=== PATIENT | female | born 1965 | race Caucasian/White ===

== ENCOUNTER 2016-08-26 06:53 | Day surgery (SDC) | payer BC ==
[~2016-08-26 06:53] MED LIST: Sodium Chloride 0.9% 10 ML Syringe FLUSH PRN; Sodium Chloride 0.9% 2.5 ML Syringe FLUSH PRN
[2016-08-26] MEDS: Lactated Ringers 1,000 ML IV SCH ×3 (07:12→18:59)
[2016-08-26] MEDS ORDERED: fentaNYL 250 MCG/5 ML SDV ONE (07:22)
[2016-08-26] MEDS ORDERED: Lidocaine 2% 5 ML SDV ONE (07:22)
[2016-08-26] MEDS ORDERED: Midazolam 1 MG/ML 2 ML SDV ONE (07:22)
[2016-08-26] MEDS ORDERED: Rocuronium 10 MG/ML 10 ML Syringe ONE (07:22)
[2016-08-26] MEDS ORDERED: Ondansetron 4 MG/2 ML SDV ONE (07:22)
[2016-08-26] MEDS ORDERED: Propofol 200 MG/20 ML SDV ONE (07:22)
[2016-08-26] MEDS ORDERED: Fluorescein 5 ML Vial ONE (07:24)
--- NOTE | 2016-08-26 07:31 | PCM.PREANE ---
Preanesthetic Assessment - Anesthesia/Transfusion/Family Hx Anesthesia History: Prior Anesthesia Without Reaction Other Type of Anesthesia Reaction Comment: DENIES ANY PROBLEMS WITH ANESTHESIA Family History of Anesthesia Reaction: No Transfusion History: No Prior Transfusion(s) Intubation History: Unknown - Review of Systems General: No Symptoms Pulmonary: No Symptoms Cardiovascular: No Symptoms Gastrointestinal: No symptoms Neurological: No Symptoms Other: Reports: None - Physical Assessment O2 Sat by Pulse Oximetry: 98 Respiratory Rate: 16 Vital Signs: Last Vital Signs Temp 36.3 C 08/26/16 07:10 Pulse 92 08/26/16 07:10 Resp 16 08/26/16 07:10 BP 128/91 H 08/26/16 07:10 Pulse Ox 98 08/26/16 07:10 Height: 1.78 m Weight: 105.687 kg ASA Class: 2 Mental Status: Alert & Oriented x3 Airway Class: Mallampati = 3 Dentition: Reports: Normal Dentition Thyro-Mental Finger Breadths: 2 Mouth Opening Finger Breadths: 2 ROM/Head Extension: Full Lungs: Clear to auscultation, Normal respiratory effort Cardiovascular: Regular Rate, Regular Rhythm - Allergies Allergies/Adverse Reactions: Allergies Allergy/AdvReac Type Severity Reaction Status Date / Time No Known Allergies Allergy Verified 08/22/16 16:00 - Blood Blood Available: No - Anesthesia Plan Pre-Op Medication Ordered: None - Acknowledgements Anesthesia Type Planned: General Anesthesia Pt an Appropriate Candidate for the Planned Anesthesia: Yes Alternatives and Risks of Anesthesia Discussed w Pt/Guardian: Yes Pt/Guardian Understands and Agrees with Anesthesia Plan: Yes PreAnesthesia Questionnaire HEENT History: Other HEENT History: uses reading glasses Cardiovascular History: Reports: None Respiratory History: Reports: None Gastrointestinal History: Reports: Colon Polyp Genitourinary History: Reports: None 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: Dysfunctional Uterine Bleeding, Endometriosis, Musculoskeletal History: Reports: Fracture Other Musculoskeletal History: hx of fx neck vertebrate Neurological History: Reports: None Psychiatric History: Reports: None Endocrine/Metabolic History: Reports: Obesity/BMI 30+ Hematologic History: Reports: Anemia Immunologic History: Reports: None Oncologic (Cancer) History: Reports: None Dermatologic History: Reports: None - Past Surgical History Head Surgeries/Procedures: Reports: None HEENT Surgical History: Reports: None Cardiovascular Surgical History: Reports: None Respiratory Surgical History: Reports: None GI Surgical History: Reports: Colonoscopy Female Surgical History: Reports: D&C, Other (See Below) Other Female Surgeries/Procedures: Laparoscopy and repair of third degree vaginal tear post delivery Endocrine Surgical History: Reports: None Neurological Surgical History: Reports: None Musculoskeletal Surgical History: Reports: Arthroscopic Knee Other Musculoskeletal Surgeries/Procedures:: right knee x2 Oncologic Surgical History: Reports: None Dermatological Surgical History: Reports: None - SUBSTANCE USE Smoking Status *Q: Never Smoker Days Per Week of Alcohol Use: 0 Number of Drinks Per Day: 0 Total Drinks Per Week: 0 Recreational Drug Use History: No - HOME MEDS Home Medications: Home Meds . [No Known Home Meds] 10/10/15 [History] - CURRENT (IN HOUSE) MEDS Current Meds: Current Medications Lactated Ringer's (Ringers, Lactated) 1,000 mls @ 125 mls/hr IV ASDIRECTED [facility] Last Admin: 08/26/16 07:12 Dose: 125 mls/hr Sodium Chloride (Saline Flush) 10 ml FLUSH ASDIRECTED PRN PRN Reason: Keep Vein Open Sodium Chloride (Saline Flush) 2.5 ml FLUSH ASDIRECTED PRN PRN Reason: Keep Vein Open Discontinued Medications Fentanyl (Sublimaze) Confirm Administered Dose 250 mcg .ROUTE .STK-MED ONE Stop: 08/26/16 07:23 Fluorescein Sodium (Ak-Fluor) Confirm Administered Dose 5 ml .ROUTE .STK-MED ONE Stop: 08/26/16 07:25 Cefazolin Sodium 3 gm/ Sodium (Chloride) 100 mls @ 100 mls/hr IV ONETIME [facility] Stop: 08/26/16 05:59 Lidocaine (Xylocaine-Mpf 2%) Confirm Administered Dose 5 ml .ROUTE .STK-MED ONE Stop: 08/26/16 07:23 Midazolam HCl (Versed 1 Mg/Ml) Confirm Administered Dose 2 mg .ROUTE .STK-MED ONE Stop: 08/26/16 07:23 Ondansetron HCl (Zofran) Confirm Administered Dose 4 mg .ROUTE .STK-MED ONE Stop: 08/26/16 07:23 Propofol (Diprivan 20 Ml) Confirm Administered Dose 200 mg .ROUTE .STK-MED ONE Stop: 08/26/16 07:23 Rocuronium [place] (Zemuron) Confirm Administered Dose 100 mg .ROUTE .STK-MED ONE Stop: 08/26/16 07:23
[2016-08-26 07:55] LABS: CHLORIDE,CL 105 mmol/L (98-110); SODIUM,NA 144 mmol/L (136-146)
[2016-08-26] MEDS ORDERED: ceFAZolin 1 GM Vial ONE (08:19)
[2016-08-26] MEDS ORDERED: HYDROmorphone 2 MG/ML Syringe ONE (08:21)
[2016-08-26] MEDS ORDERED: Dexamethasone 4 MG/ML 5 ML MDV ONE (08:24)
[2016-08-26] MEDS ORDERED: Neostigmine Methylsulfate 1 MG/ML 5 ML Syringe ONE (08:57)
[2016-08-26] MEDS ORDERED: fentaNYL 100 MCG/2 ML SDV IVPUSH PRN (09:09)
--- NOTE | 2016-08-26 09:11 | PCM.PREANE ---
Preanesthetic Assessment - Anesthesia/Transfusion/Family Hx Anesthesia History: Prior Anesthesia Without Reaction Other Type of Anesthesia Reaction Comment: DENIES ANY PROBLEMS WITH ANESTHESIA Family History of Anesthesia Reaction: No Transfusion History: No Prior Transfusion(s) Intubation History: History of Difficulty Intubation (For [facility] - small mouth opening, even with glidescope couldn't fit tube - had to use bougie as well.) - Review of Systems Other: Reports: None - Physical Assessment O2 Sat by Pulse Oximetry: 98 Respiratory Rate: 16 Vital Signs: Last Vital Signs Temp 97.3 F 08/26/16 07:10 Pulse 92 08/26/16 07:10 Resp 16 08/26/16 07:31 BP 128/91 H 08/26/16 07:10 Pulse Ox 98 08/26/16 07:31 Height: 5 ft 10 in Weight: 233 lb - Lab Values: Laboratory Last Values WBC 5.78 K/uL (4.0-11.0) 08/26/16 07:20 RBC 5.39 M/uL (4.30-5.90) 08/26/16 07:20 Hgb 15.4 g/dL (12.0-16.0) 08/26/16 07:20 Hct 45.5 % (36.0-46.0) 08/26/16 07:20 MCV 84.4 fL (80.0-98.0) 08/26/16 07:20 MCH 28.6 pg (27.0-32.0) 08/26/16 07:20 MCHC 33.8 g/dL (31.0-37.0) 08/26/16 07:20 RDW Std Deviation 43.1 fl (28.0-62.0) 08/26/16 07:20 RDW Coeff of Esequiel 14 % (11.0-15.0) 08/26/16 07:20 Plt Count 201 K/uL (150-400) 08/26/16 07:20 MPV 10.30 fL (7.40-12.00) 08/26/16 07:20 Nucleated RBC % 0.0 /100WBC 08/26/16 07:20 Nucleated RBCs # 0 K/uL 08/26/16 07:20 Sodium 144 mmol/L (136-146) 08/26/16 07:20 Potassium 3.5 mmol/L (3.5-5.1) 08/26/16 07:20 Chloride 105 mmol/L (98-110) 08/26/16 07:20 Carbon Dioxide 26 mmol/L (21-31) 08/26/16 07:20 BUN 11 mg/dL (6.0-23.0) 08/26/16 07:20 Creatinine 0.9 mg/dL (0.6-1.5) 08/26/16 07:20 Est Cr Clr Drug Dosing 79.97 mL/min 08/26/16 07:20 Estimated GFR (MDRD) > 60.0 ml/min 08/26/16 07:20 Glucose 102 mg/dL (60-110) 08/26/16 07:20 Calcium 9.4 mg/dL (8.8-10.8) 08/26/16 07:20 HCG, Qual NEGATIVE (NEG) 08/26/16 07:20 - Allergies Allergies/Adverse Reactions: Allergies Allergy/AdvReac Type Severity Reaction Status Date / Time No Known Allergies Allergy Verified 08/22/16 16:00 - Blood Blood Available: No PreAnesthesia Questionnaire HEENT History: Other HEENT History: uses reading glasses Cardiovascular History: Reports: None Respiratory History: Reports: None Gastrointestinal History: Reports: Colon Polyp Genitourinary History: Reports: None 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: Dysfunctional 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 Bleeding, Endometriosis, Musculoskeletal History: Reports: Fracture Other Musculoskeletal History: hx of fx neck vertebrate Neurological History: Reports: None Psychiatric History: Reports: None Endocrine/Metabolic History: Reports: Obesity/BMI 30+ Hematologic History: Reports: Anemia Immunologic History: Reports: None Oncologic (Cancer) History: Reports: None Dermatologic History: Reports: None - Past Surgical History Head Surgeries/Procedures: Reports: None HEENT Surgical History: Reports: None Cardiovascular Surgical History: Reports: None Respiratory Surgical History: Reports: None GI Surgical History: Reports: Colonoscopy Female Surgical History: Reports: D&C, Other (See Below) Other Female Surgeries/Procedures: Laparoscopy and repair of third degree vaginal tear post delivery Endocrine Surgical History: Reports: None Neurological Surgical History: Reports: None Musculoskeletal Surgical History: Reports: Arthroscopic Knee Other Musculoskeletal Surgeries/Procedures:: right knee x2 Oncologic Surgical History: Reports: None Dermatological Surgical History: Reports: None - SUBSTANCE USE Smoking Status *Q: Never Smoker Days Per Week of Alcohol Use: 0 Number of Drinks Per Day: 0 Total Drinks Per Week: 0 Recreational Drug Use History: No - HOME MEDS Home Medications: Home Meds . [No Known Home Meds] 10/10/15 [History] - CURRENT (IN HOUSE) MEDS Current Meds: Current Medications Fentanyl (Sublimaze) 50 mcg IVPUSH .Q5MIN PRN PRN Reason: Pain Stop: 08/30/16 09:10 Lactated Ringer's (Ringers, Lactated) 1,000 mls @ 125 mls/hr IV ASDIRECTED [facility] Last Admin: 08/26/16 07:12 Dose: 125 mls/hr Sodium Chloride (Saline Flush) 10 ml FLUSH ASDIRECTED PRN PRN Reason: Keep Vein Open Sodium Chloride (Saline Flush) 2.5 ml FLUSH ASDIRECTED PRN PRN Reason: Keep Vein Open Discontinued Medications Cefazolin Sodium (Ancef) Confirm Administered Dose 2 gm .ROUTE .STK-MED ONE Stop: 08/26/16 08:20 Dexamethasone (Dexamethasone) Confirm Administered Dose 20 mg .ROUTE .STK-MED ONE Stop: 08/26/16 08:25 Fentanyl (Sublimaze) Confirm Administered Dose 250 mcg .ROUTE .STK-MED ONE Stop: 08/26/16 07:23 Fluorescein Sodium (Ak-Fluor) Confirm Administered Dose 5 ml .ROUTE .STK-MED ONE Stop: 08/26/16 07:25 Glycopyrrolate () Confirm Administered Dose 1 mg .ROUTE .STK-MED ONE Stop: 08/26/16 08:58 Hydromorphone HCl (Dilaudid) Confirm Administered Dose 2 mg .ROUTE .STK-MED ONE Stop: 08/26/16 08:22 Cefazolin Sodium 3 gm/ Sodium (Chloride) 100 mls @ 100 mls/hr IV ONETIME [facility] Stop: 08/26/16 05:59 Lidocaine (Xylocaine-Mpf 2%) Confirm Administered Dose 5 ml .ROUTE .STK-MED ONE Stop: 08/26/16 07:23 Midazolam HCl (Versed 1 Mg/Ml) Confirm Administered Dose 2 mg .ROUTE .STK-MED ONE Stop: 08/26/16 07:23 Neostigmine Methylsulfate (Neostigmine) Confirm Administered Dose 5 mg .ROUTE .STK-MED ONE Stop: 08/26/16 08:58 Ondansetron HCl (Zofran) Confirm Administered Dose 4 mg .ROUTE .STK-MED ONE Stop: 08/26/16 07:23 Propofol (Diprivan 20 Ml) Confirm Administered Dose 200 mg .ROUTE .STK-MED ONE Stop: 08/26/16 07:23 Rocuronium [place] (Zemuron) Confirm Administered Dose 100 mg .ROUTE .STK-MED ONE Stop: 08/26/16 07:23
[2016-08-26] MEDS ORDERED: Furosemide 40 MG/4 ML VIAL ONE (09:14)
[2016-08-26] MEDS ORDERED: fentaNYL 100 MCG/2 ML SDV ONE (10:52)
[2016-08-26] MEDS ORDERED: Ketorolac 30 MG/ML SDV ONE (11:20)
[2016-08-26] MEDS ORDERED: Ondansetron 4 MG/2 ML SDV IVPUSH PRN (11:47)
[2016-08-26] MEDS ORDERED: Ketorolac 30 MG/ML SDV IVPUSH ONE (11:47)
[2016-08-26] MEDS ORDERED: Morphine 4 MG/ML Syringe IVPUSH PRN (11:47)
[2016-08-26] MEDS ORDERED: Promethazine 25 MG/ML SDV IM PRN (11:47)
[2016-08-26] MEDS ORDERED: Acetaminophen/oxyCODONE 325-5 MG Tab PO PRN (11:47)
[2016-08-26] MEDS ORDERED: Morphine 2 MG/ML Syringe IVPUSH PRN (11:47)
[2016-08-26] MEDS ORDERED: Ketorolac 30 MG/ML SDV IVPUSH PRN (11:47)
--- NOTE | 2016-08-26 12:01 | PCM.OPNOTE ---
- General Post-Op/Procedure Note Date of Surgery/Procedure: 08/26/16 Operative Procedure(s): Vaginal hysterectomy and cystoscopy Findings: Bulky uterus and cervix. Normal tubes and ovaries bilaterally. No bladder injuries with efflux of dye from the ureteric orifices bilaterally. Pre Op Diagnosis: Menorrhagia. 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
--- NOTE | 2016-08-26 12:05 | PCM.POSTAN ---
POST ANESTHESIA ASSESSMENT - MENTAL STATUS Mental Status: alert, oriented - RESPIRATORY Respiratory Status: respiratory rate WNL, airway patent, O2 saturation stable - CARDIOVASCULAR CV Status: pulse rate WNL, blood pressure stable - GASTROINTESTINAL GI Status: no symptoms - PAIN Pain Score: 0 - POST OP HYDRATION Hydration Status: adequate & stable - OBSERVATIONS Free Text/Narrative:: no anestrhesia problems
[2016-08-26] MEDS: Acetaminophen/oxyCODONE 325-5 MG Tab PO PRN ×2 (15:22→21:09)
--- NOTE | 2016-08-26 18:59 | PCM.SURGPN ---
- General Info Date of Service: 08/26/16 POD#: 0 Post-Op Diagnosis: s/p Vaginal hysterectomy Functional Status: Reports: pain controlled, tolerating diet, ambulating, incentive spirometry - Review of Systems General: Denies: Fever, Weakness, Fatigue Pulmonary: Denies: shortness of breath, pleuritic chest pain Cardiovascular: Denies: Chest Pain, Palpitations, Dyspnea on Exertion Gastrointestinal: Denies: Abdominal pain Genitourinary: Denies: flank pain Neurological: Denies: Headache Psychiatric: Denies: mood lability, anxiety - Patient Data Vitals - most recent: Last Vital Signs Temp 37.1 C 08/26/16 15:10 Pulse 89 08/26/16 15:10 Resp 16 08/26/16 15:10 BP 137/70 08/26/16 15:10 Pulse Ox 98 08/26/16 15:10 Weight - most recent: 233 lb I&O - last 24 hours: Intake & Output 08/26/16 08/26/16 08/26/16 06:59 14:59 22:59 Intake Total 6550 720 Output Total 280 125 Balance 6270 595 Lab Results last 24 hrs: Laboratory Results - last 24 hr 08/26/16 08/26/16 08/26/16 Range/Units 07:20 07:20 07:20 WBC 5.78 (4.0-11.0) K/uL RBC 5.39 (4.30-5.90) M/uL Hgb 15.4 (12.0-16.0) g/dL Hct 45.5 (36.0-46.0) % MCV 84.4 (80.0-98.0) fL MCH 28.6 (27.0-32.0) pg MCHC 33.8 (31.0-37.0) g/dL RDW Std Deviation 43.1 (28.0-62.0) fl RDW Coeff of Esequiel 14 (11.0-15.0) % Plt Count 201 (150-400) K/uL MPV 10.30 (7.40-12.00) fL Nucleated RBC % 0.0 /100WBC Nucleated RBCs # 0 K/uL Sodium 144 (136-146) mmol/L Potassium 3.5 (3.5-5.1) mmol/L Chloride 105 (98-110) mmol/L Carbon Dioxide 26 (21-31) mmol/L BUN 11 (6.0-23.0) mg/dL Creatinine 0.9 (0.6-1.5) mg/dL Est Cr Clr Drug Dosing 79.97 mL/min Estimated GFR (MDRD) > 60.0 ml/min Glucose 102 (60-110) mg/dL Calcium 9.4 (8.8-10.8) mg/dL HCG, Qual NEGATIVE (NEG) Blood Type Antibody Screen 08/26/16 Range/Units 07:20 WBC (4.0-11.0) K/uL RBC (4.30-5.90) M/uL Hgb (12.0-16.0) g/dL Hct (36.0-46.0) % MCV (80.0-98.0) fL MCH (27.0-32.0) pg MCHC (31.0-37.0) g/dL RDW Std Deviation (28.0-62.0) fl RDW Coeff of Esequiel (11.0-15.0) % Plt Count (150-400) K/uL MPV (7.40-12.00) fL Nucleated RBC % /100WBC Nucleated RBCs # K/uL Sodium (136-146) mmol/L Potassium (3.5-5.1) mmol/L Chloride (98-110) mmol/L Carbon Dioxide (21-31) mmol/L BUN (6.0-23.0) mg/dL Creatinine (0.6-1.5) mg/dL Est Cr Clr Drug Dosing mL/min Estimated GFR (MDRD) ml/min Glucose (60-110) mg/dL Calcium (8.8-10.8) mg/dL HCG, Qual (NEG) Blood Type O POSITIVE Antibody Screen NEGATIVE Med Orders - Current: Current Medications Lactated Ringer's (Ringers, Lactated) 1,000 mls @ 125 mls/hr IV ASDIRECTED [facility] Last Admin: 08/26/16 14:17 Dose: 125 mls/hr Ketorolac Tromethamine (Toradol) 30 mg IVPUSH Q6H PRN PRN Reason: Pain (severe 7-10) Stop: 08/31/16 11:47 Morphine Sulfate (Morphine) 2 mg IVPUSH Q2H PRN PRN Reason: Pain (severe 7-10) Morphine Sulfate (Morphine) 4 mg IVPUSH Q2H PRN PRN Reason: Pain (severe 7-10) Ondansetron HCl (Zofran) 4 mg IVPUSH Q6H PRN PRN Reason: Nausea/Vomiting Oxycodone/Acetaminophen (Percocet 325-5 Mg) 1 tab PO Q4H PRN PRN Reason: Pain (moderate 4-6) Oxycodone/Acetaminophen (Percocet 325-5 Mg) 2 tab PO Q4H PRN PRN Reason: Pain (moderate 4-6) Last Admin: 08/26/16 15:22 Dose: 2 tab Promethazine HCl (Phenergan) 25 mg IM Q6H PRN PRN Reason: Nausea/Vomiting Sodium Chloride (Saline Flush) 10 ml FLUSH ASDIRECTED PRN PRN Reason: Keep Vein Open Sodium Chloride (Saline Flush) 2.5 ml FLUSH ASDIRECTED PRN PRN Reason: Keep Vein Open Discontinued Medications Cefazolin Sodium (Ancef) Confirm Administered Dose 2 gm .ROUTE .STK-MED ONE Stop: 08/26/16 08:20 Dexamethasone (Dexamethasone) Confirm Administered Dose 20 mg .ROUTE .STK-MED ONE Stop: 08/26/16 08:25 Fentanyl (Sublimaze) Confirm Administered Dose 250 mcg .ROUTE .STK-MED ONE Stop: 08/26/16 07:23 Fentanyl (Sublimaze) 50 mcg IVPUSH .Q5MIN PRN PRN Reason: Pain Stop: 08/30/16 09:10 Fentanyl (Sublimaze) Confirm Administered Dose 100 mcg .ROUTE .STK-MED ONE Stop: 08/26/16 10:53 Fluorescein Sodium (Ak-Fluor) Confirm Administered Dose 5 ml .ROUTE .STK-MED ONE Stop: 08/26/16 07:25 Furosemide (Lasix) Confirm Administered Dose 40 mg .ROUTE .STK-MED ONE Stop: 08/26/16 09:15 Glycopyrrolate () Confirm Administered Dose 1 mg .ROUTE .STK-MED ONE Stop: 08/26/16 08:58 Hydromorphone HCl (Dilaudid) Confirm Administered Dose 2 mg .ROUTE .STK-MED ONE Stop: 08/26/16 08:22 Cefazolin Sodium 3 gm/ Sodium (Chloride) 100 mls @ 100 mls/hr IV ONETIME [facility] Stop: 08/26/16 05:59 Last Admin: 08/26/16 13:15 Dose: Not Given Ketorolac Tromethamine (Toradol) Confirm Administered Dose 30 mg .ROUTE .STK- MED ONE Stop: 08/26/16 11:21 Ketorolac Tromethamine (Toradol) 30 mg IVPUSH ONETIME ONE Stop: 08/26/16 11:48 Last Admin: 08/26/16 13:15 Dose: Not Given Lidocaine (Xylocaine-Mpf 2%) Confirm Administered Dose 5 ml .ROUTE .STK-MED ONE Stop: 08/26/16 07:23 Midazolam HCl (Versed 1 Mg/Ml) Confirm Administered Dose 2 mg .ROUTE .STK-MED ONE Stop: 08/26/16 07:23 Neostigmine Methylsulfate (Neostigmine) Confirm Administered Dose 5 mg .ROUTE .STK-MED ONE Stop: 08/26/16 08:58 Ondansetron HCl (Zofran) Confirm Administered Dose 4 mg .ROUTE .STK-MED ONE Stop: 08/26/16 07:23 Propofol (Diprivan 20 Ml) Confirm Administered Dose 200 mg .ROUTE .STK-MED ONE Stop: 08/26/16 07:23 Rocuronium [place] (Zemuron) Confirm Administered Dose 100 mg .ROUTE .STK-MED ONE Stop: 08/26/16 07:23 - Exam General: alert, oriented HEENT: Pupils equal Lungs: Clear to auscultation, Normal respiratory effort Cardiovascular: Regular Rate, Regular Rhythm Abdomen: bowel sounds present, soft, no tenderness, no distension Extremities: no edema, no calf tenderness Psy/Mental Status: alert, normal affect, normal mood - Problem List & Annotations (1) S/P vaginal hysterectomy SNOMED Code(s): 948347931, 056126159 Code(s): Z90.710 - ACQUIRED ABSENCE OF BOTH CERVIX AND UTERUS Status: Acute Current Visit: Yes - Problem List Review Problem List Initiated/Reviewed/Updated: Yes - My Orders Last 24 Hours: Active Orders 24 hr Category Date Time Status Antiembolic Devices [RC] PER UNIT ROUTINE Care 08/26/16 11:48 Active Notify Provider Intake and Out [RC] ASDIRECTED Care 08/26/16 11:47 Active Notify Provider Vital Signs [RC] ASDIRECTED Care 08/26/16 11:47 Active RT Incentive Spirometry [RC] Q2HWA Care 08/26/16 11:47 Active Up With Assistance [RC] PER UNIT ROUTINE Care 08/26/16 11:47 Active Up ad Laura [RC] PER UNIT ROUTINE Care 08/26/16 11:47 Active Urinary Catheter Removal [RC] Per Unit Routine Care 08/26/16 11:47 Active Vital Signs [RC] PER UNIT ROUTINE Care 08/26/16 05:00 Active Regular Diet [DIET] Diet 08/26/16 Dinner Active BASIC METABOLIC PANEL,BMP [CHEM] AM Lab 08/27/16 12:00 Ordered CBC WITH AUTO DIFF [HEME] AM Lab 08/27/16 05:11 Ordered Acetaminophen/oxyCODONE [Percocet 325-5 MG] Med 08/26/16 11:47 Active 1 tab PO Q4H PRN Acetaminophen/oxyCODONE [Percocet 325-5 MG] Med 08/26/16 11:47 Active 2 tab PO Q4H PRN Ketorolac [Toradol] Med 08/26/16 11:47 Active 30 mg IVPUSH Q6H PRN Lactated Ringers [Ringers, Lactated] 1,000 ml Med 08/26/16 05:00 Active IV ASDIRECTED Morphine Med 08/26/16 11:47 Active 2 mg IVPUSH Q2H PRN Morphine Med 08/26/16 11:47 Active 4 mg IVPUSH Q2H PRN Ondansetron [Zofran] Med 08/26/16 11:47 Active 4 mg IVPUSH Q6H PRN Promethazine [Phenergan] Med 08/26/16 11:47 Active 25 mg IM Q6H PRN Sodium Chloride 0.9% [Saline Flush] Med 08/26/16 05:00 Active 10 ml FLUSH ASDIRECTED PRN Sodium Chloride 0.9% [Saline Flush] Med 08/26/16 05:00 Active 2.5 ml FLUSH ASDIRECTED PRN Perineal Care [OM.PC] Per Unit Routine Oth 08/26/16 11:49 Ordered Peripheral IV Discontinue [OM.PC] Routine Oth 08/26/16 11:47 Ordered Peripheral IV Insertion Adult [OM.PC] Urgent Oth 08/26/16 05:00 Ordered Sequential Compression Device [OM.PC] Per Unit Routine Oth 08/26/16 05:00 Ordered Sequential Compression Device [OM.PC] Per Unit Routine Oth 08/26/16 11:47 Ordered Resuscitation Status Routine Resus Stat 08/26/16 11:47 Ordered Medication Orders Lactated Ringer's (Ringers, Lactated) 1,000 mls @ 125 mls/hr IV ASDIRECTED [facility] Last Admin: 08/26/16 14:17 Dose: 125 mls/hr Infusion: 08/26/16 14:17 Dose: 125 mls/hr Admin: 08/26/16 07:12 Dose: 125 mls/hr Ketorolac Tromethamine (Toradol) 30 mg IVPUSH Q6H PRN PRN Reason: Pain (severe 7-10) Stop: 08/31/16 11:47 Morphine Sulfate (Morphine) 2 mg IVPUSH Q2H PRN PRN Reason: Pain (severe 7-10) Morphine Sulfate (Morphine) 4 mg IVPUSH Q2H PRN PRN Reason: Pain (severe 7-10) Ondansetron HCl (Zofran) 4 mg IVPUSH Q6H PRN PRN Reason: Nausea/Vomiting Oxycodone/Acetaminophen (Percocet 325-5 Mg) 1 tab PO Q4H PRN PRN Reason: Pain (moderate 4-6) Oxycodone/Acetaminophen (Percocet 325-5 Mg) 2 tab PO Q4H PRN PRN Reason: Pain (moderate 4-6) Last Admin: 08/26/16 15:22 Dose: 2 tab Promethazine HCl (Phenergan) 25 mg IM Q6H PRN PRN Reason: Nausea/Vomiting Sodium Chloride (Saline Flush) 10 ml FLUSH ASDIRECTED PRN PRN Reason: Keep Vein Open Sodium Chloride (Saline Flush) 2.5 ml FLUSH ASDIRECTED PRN PRN Reason: Keep Vein Open - Assessment Assessment (Free Text/Narrative):: POD#0 s/p vaginal hysterectomy, doing well. Has no concerns Adequate urine output - Plan Plan (Free Text/Narrative):: Continue current care. Aim for discharge in the am.
--- NOTE | 2016-08-27 00:29 | OR ---
SURGEON: Sarah Robert MD DATE OF PROCEDURE: 08/26/2016 CAFE ATTENDANT: Dr. Cortez. PREOPERATIVE DIAGNOSES: 1. Menorrhagia. 2. Benign endometrial hyperplasia. POSTOPERATIVE DIAGNOSES: 1. Menorrhagia. 2. Benign endometrial hyperplasia. PROCEDURE: 1. Vaginal hysterectomy. 2. Cystoscopy. ANESTHESIA: General endotracheal. IV FLUIDS: Replaced 3000 mL. ESTIMATED BLOOD LOSS: 500 mL. FINDINGS: Bulky uterus approximately 12 weeks size. Normal ovaries and tubes. No trauma to bladder mucosa with bilateral patent ureters during cystoscopy. COMPLICATIONS: None. DISPOSITION: Stable to recovery room. BRIEF HISTORY: The patient is a 50-year-old lady who has continued to have menorrhagia despite hormonal treatment with progestins.She was diagnosed benign endometrial hyperplasia about 3 years ago, had Mirena inserted which was extruded from the uterine cavity and has since being on continuous oral progesterones. Her last biopsy 4 months ago showed was normal, but if she stops the progesterone, she had heavy periods. The management options were discussed with the patient and she opted to go ahead with definitive management in the form of hysterectomy. She opted to retain her ovaries and tubes. The risks of the procedure were discussed with her including but not limited to bleeding, infection, injury to bowel, bladder, blood vessels, ureters, thromboembolic event, and risk of anesthesia. Understanding this, she agreed to proceed. Appropriate consent was obtained. DESCRIPTION OF PROCEDURE: The patient was taken to the operating room, where induction of general anesthesia was performed without difficulty. After adequate level of general endotracheal anesthesia, she was placed in dorsal lithotomy position. The abdomen, perineum, and vagina were prepped in the normal sterile fashion for vaginal surgery. A Iverson catheter was placed. SCDs were in place. She received 2 g of Ancef. Appropriate time-out was held. A weighted speculum was placed posteriorly. The cervix was grasped with Lee Ann tenaculum. The cervix was then circumscribed using electrocautery and the bladder was dissected off the pubovaginal cervical fascia bluntly with a sponge. The cervix was also dissected off posteriorly and the posterior cul-de-sac was entered sharply without difficulty and a Geneva-Auvard speculum was placed posteriorly. Initially, it was difficult to perform an anterior colpotomy due to a rather long cervix, hence the uterosacral ligaments were cross clamped, cut, suture ligated with Tara suture of 2-0 Polysorb on either sides. The cardinal ligament complex was then cross- clamped on both sides, transected, and suture ligated in similar fashion with a 2-0 Polysorb suture. The uterine arteries in the broad ligament were then cross - clamped with a Tara clamp on both sides transected and suture ligated on both sides. After this was performed, I reattempted an anterior colpotomy, and at this time, I was successful. Excellent hemostasis was noted on all the pedicles at this point. Both cornu were then clamped with Tara clamps, transected, and the uterus was delivered after the pedicles were suture ligated with good hemostasis. The pedicles were then carefully inspected on both sides and noted on the right side was a bleeding vessel that was close to the uterosacral ligament complex, this was clamped with a Tara and this area was suture ligated with 2-0 Vicryl suture. After this, hemostasis was achieved. The pedicles were then carefully inspected again and was found to be hemostatic. The uterosacral ligament on both sides were then transfixed to the ipsilateral side. The vaginal cuff was closed with 0-Vicryl suture in a running locked fashion. Cystoscopy was performed after intravenous fluorescein dye and Lasix had been given to the patient. There was copious flow of florescence yellow urine from both ureteral orifices. The patient tolerated the procedure well. Sponge , needle, and instrument counts were reported as correct. The patient was transferred to recovery room in stable condition. ADUMVIV / JOESPHL /[id number] JOSELIN
[2016-08-27] MEDS: Acetaminophen/oxyCODONE 325-5 MG Tab PO PRN ×3 (00:54→14:02)
--- NOTE | 2016-08-27 01:08 | PCM48HPAN ---
Post Anesthesia Note - EVALUATION WITHIN 48HRS OF ANESTHETIC Vital Signs in Normal Range: Yes Patient Participated in Evaluation: Yes Respiratory Function Stable: Yes Airway Patent: Yes Cardiovascular Function Stable: Yes Hydration Status Stable: Yes Pain Control Satisfactory: Yes Nausea and Vomiting Control Satisfactory: Yes Mental Status Recovered: Yes
[2016-08-27 05:46] LABS: CHLORIDE,CL 106 mmol/L (98-110); SODIUM,NA 141 mmol/L (136-146)
[2016-08-27 07:46] VITALS: BP 116/72
--- NOTE | 2016-08-27 09:01 | PCM.SURGPN ---
- General Info Date of Service: 08/27/16 POD#: 1 Post-Op Diagnosis: s/p vaginal hysterectomy Functional Status: Reports: pain controlled, tolerating diet, ambulating - Review of Systems General: Denies: Fever, Weakness, Fatigue, Malaise Pulmonary: Denies: shortness of breath, pleuritic chest pain, cough Cardiovascular: Denies: Chest Pain, Palpitations Gastrointestinal: Denies: Abdominal pain, Nausea, Vomiting Genitourinary: Reports: dysuria, other (yet to void, gibbs removed this am). Denies: flank pain Neurological: Denies: Headache - Patient Data Vitals - most recent: Last Vital Signs Temp 37.0 C 08/27/16 07:30 Pulse 76 08/27/16 07:30 Resp 16 08/27/16 07:30 BP 116/72 08/27/16 07:30 Pulse Ox 95 08/27/16 07:30 Weight - most recent: 233 lb I&O - last 24 hours: Intake & Output 08/26/16 08/27/16 08/27/16 22:59 06:59 14:59 Intake Total 720 Output Total 1425 1300 Balance -705 -1300 Lab Results last 24 hrs: Laboratory Results - last 24 hr 08/26/16 08/27/16 08/27/16 Range/Units 07:20 05:01 05:01 WBC 9.73 (4.0-11.0) K/uL RBC 4.16 L (4.30-5.90) M/uL Hgb 11.8 L (12.0-16.0) g/dL Hct 35.4 L (36.0-46.0) % MCV 85.1 (80.0-98.0) fL MCH 28.4 (27.0-32.0) pg MCHC 33.3 (31.0-37.0) g/dL RDW Std Deviation 43.7 (28.0-62.0) fl RDW Coeff of Esequiel 14 (11.0-15.0) % Plt Count 213 (150-400) K/uL MPV 9.90 (7.40-12.00) fL Neut % (Auto) 75.8 (48.0-80.0) % Lymph % (Auto) 15.7 L (16.0-40.0) % [place] % (Auto) 8.3 (0.0-15.0) % Eos % (Auto) 0.1 (0.0-7.0) % Baso % (Auto) 0.1 (0.0-1.5) % Neut # (Auto) 7.4 H (1.4-5.7) K/uL Lymph # (Auto) 1.5 (0.6-2.4) K/uL [place] # (Auto) 0.8 (0.0-0.8) K/uL Eos # (Auto) 0.0 (0.0-0.7) K/uL Baso # (Auto) 0.0 (0.0-0.1) K/uL Nucleated RBC % 0.0 /100WBC Nucleated RBCs # 0 K/uL Sodium 141 (136-146) mmol/L Potassium 3.7 (3.5-5.1) mmol/L Chloride 106 (98-110) mmol/L Carbon Dioxide 24 (21-31) mmol/L BUN 9 (6.0-23.0) mg/dL Creatinine 0.8 (0.6-1.5) mg/dL Est Cr Clr Drug Dosing 89.97 mL/min Estimated GFR (MDRD) > 60.0 ml/min Glucose 114 H (60-110) mg/dL Calcium 8.4 L (8.8-10.8) mg/dL Blood Type O POSITIVE Antibody Screen NEGATIVE Med Orders - Current: Current Medications Lactated Ringer's (Ringers, Lactated) 1,000 mls @ 125 mls/hr IV ASDIRECTED [facility] Last Admin: 08/26/16 18:59 Dose: 125 mls/hr Ketorolac Tromethamine (Toradol) 30 mg IVPUSH Q6H PRN PRN Reason: Pain (severe 7-10) Stop: 08/31/16 11:47 Last Admin: 08/26/16 21:09 Dose: 30 mg Morphine Sulfate (Morphine) 2 mg IVPUSH Q2H PRN PRN Reason: Pain (severe 7-10) Morphine Sulfate (Morphine) 4 mg IVPUSH Q2H PRN PRN Reason: Pain (severe 7-10) Ondansetron HCl (Zofran) 4 mg IVPUSH Q6H PRN PRN Reason: Nausea/Vomiting Oxycodone/Acetaminophen (Percocet 325-5 Mg) 1 tab PO Q4H PRN PRN Reason: Pain (moderate 4-6) Oxycodone/Acetaminophen (Percocet 325-5 Mg) 2 tab PO Q4H PRN PRN Reason: Pain (moderate 4-6) Last Admin: 08/27/16 05:17 Dose: 2 tab Promethazine HCl (Phenergan) 25 mg IM Q6H PRN PRN Reason: Nausea/Vomiting Sodium Chloride (Saline Flush) 10 ml FLUSH ASDIRECTED PRN PRN Reason: Keep Vein Open Sodium Chloride (Saline Flush) 2.5 ml FLUSH ASDIRECTED PRN PRN Reason: Keep Vein Open Discontinued Medications Cefazolin Sodium (Ancef) Confirm Administered Dose 2 gm .ROUTE .STK-MED ONE Stop: 08/26/16 08:20 Dexamethasone (Dexamethasone) Confirm Administered Dose 20 mg .ROUTE .STK-MED ONE Stop: 08/26/16 08:25 Fentanyl (Sublimaze) Confirm Administered Dose 250 mcg .ROUTE .STK-MED ONE Stop: 08/26/16 07:23 Fentanyl (Sublimaze) 50 mcg IVPUSH .Q5MIN PRN PRN Reason: Pain Stop: 08/30/16 09:10 Fentanyl (Sublimaze) Confirm Administered Dose 100 mcg .ROUTE .STK-MED ONE Stop: 08/26/16 10:53 Fluorescein Sodium (Ak-Fluor) Confirm Administered Dose 5 ml .ROUTE .STK-MED ONE Stop: 08/26/16 07:25 Furosemide (Lasix) Confirm Administered Dose 40 mg .ROUTE .STK-MED ONE Stop: 08/26/16 09:15 Glycopyrrolate () Confirm Administered Dose 1 mg .ROUTE .STK-MED ONE Stop: 08/26/16 08:58 Hydromorphone HCl (Dilaudid) Confirm Administered Dose 2 mg .ROUTE .STK-MED ONE Stop: 08/26/16 08:22 Cefazolin Sodium 3 gm/ Sodium (Chloride) 100 mls @ 100 mls/hr IV ONETIME LUIZA Stop: 08/26/16 05:59 Last Admin: 08/26/16 13:15 Dose: Not Given Ketorolac Tromethamine (Toradol) Confirm Administered Dose 30 mg .ROUTE .STK- MED ONE Stop: 08/26/16 11:21 Ketorolac Tromethamine (Toradol) 30 mg IVPUSH ONETIME ONE Stop: 08/26/16 11:48 Last Admin: 08/26/16 13:15 Dose: Not Given Lidocaine (Xylocaine-Mpf 2%) Confirm Administered Dose 5 ml .ROUTE .STK-MED ONE Stop: 08/26/16 07:23 Midazolam HCl (Versed 1 Mg/Ml) Confirm Administered Dose 2 mg .ROUTE .STK-MED ONE Stop: 08/26/16 07:23 Neostigmine Methylsulfate (Neostigmine) Confirm Administered Dose 5 mg .ROUTE .STK-MED ONE Stop: 08/26/16 08:58 Ondansetron HCl (Zofran) Confirm Administered Dose 4 mg .ROUTE .STK-MED ONE Stop: 08/26/16 07:23 Propofol (Diprivan 20 Ml) Confirm Administered Dose 200 mg .ROUTE .STK-MED ONE Stop: 08/26/16 07:23 Rocuronium [place] (Zemuron) Confirm Administered Dose 100 mg .ROUTE .STK-MED ONE Stop: 08/26/16 07:23 - Exam General: alert, oriented HEENT: Pupils equal Lungs: Clear to auscultation, Normal respiratory effort Cardiovascular: Regular Rate, Regular Rhythm Abdomen: bowel sounds present, soft, no tenderness, no distension Extremities: no edema Psy/Mental Status: alert, normal affect, normal mood - Problem List & Annotations (1) S/P vaginal hysterectomy SNOMED Code(s): 652431120, 117912588 Code(s): Z90.710 - ACQUIRED ABSENCE OF BOTH CERVIX AND UTERUS Status: Acute Current Visit: Yes - Problem List Review Problem List Initiated/Reviewed/Updated: Yes - My Orders Last 24 Hours: Active Orders 24 hr Category Date Time Status Antiembolic Devices [RC] PER UNIT ROUTINE Care 08/26/16 11:48 Active Notify Provider Intake and Out [RC] ASDIRECTED Care 08/26/16 11:47 Active Notify Provider Vital Signs [RC] ASDIRECTED Care 08/26/16 11:47 Active RT Incentive Spirometry [RC] Q2HWA Care 08/26/16 11:47 Active Up With Assistance [RC] PER UNIT ROUTINE Care 08/26/16 11:47 Active Up ad Laura [RC] PER UNIT ROUTINE Care 08/26/16 11:47 Active Regular Diet [DIET] Diet 08/26/16 Dinner Active Acetaminophen/oxyCODONE [Percocet 325-5 MG] Med 08/26/16 11:47 Active 1 tab PO Q4H PRN Acetaminophen/oxyCODONE [Percocet 325-5 MG] Med 08/26/16 11:47 Active 2 tab PO Q4H PRN Ketorolac [Toradol] Med 08/26/16 11:47 Active 30 mg IVPUSH Q6H PRN Morphine Med 08/26/16 11:47 Active 2 mg IVPUSH Q2H PRN Morphine Med 08/26/16 11:47 Active 4 mg IVPUSH Q2H PRN Ondansetron [Zofran] Med 08/26/16 11:47 Active 4 mg IVPUSH Q6H PRN Promethazine [Phenergan] Med 08/26/16 11:47 Active 25 mg IM Q6H PRN Perineal Care [OM.PC] Per Unit Routine Oth 08/26/16 11:49 Ordered Peripheral IV Discontinue [OM.PC] Routine Oth 08/26/16 11:47 Ordered Sequential Compression Device [OM.PC] Per Unit Routine Oth 08/26/16 11:47 Ordered Resuscitation Status Routine Resus Stat 08/26/16 11:47 Ordered Medication Orders Lactated Ringer's (Ringers, Lactated) 1,000 mls @ 125 mls/hr IV ASDIRECTED [facility] Last Admin: 08/26/16 18:59 Dose: 125 mls/hr Infusion: 08/26/16 18:59 Dose: 125 mls/hr Admin: 08/26/16 14:17 Dose: 125 mls/hr Infusion: 08/26/16 14:17 Dose: 125 mls/hr Admin: 08/26/16 07:12 Dose: 125 mls/hr Ketorolac Tromethamine (Toradol) 30 mg IVPUSH Q6H PRN PRN Reason: Pain (severe 7-10) Stop: 08/31/16 11:47 Last Admin: 08/26/16 21:09 Dose: 30 mg Morphine Sulfate (Morphine) 2 mg IVPUSH Q2H PRN PRN Reason: Pain (severe 7-10) Morphine Sulfate (Morphine) 4 mg IVPUSH Q2H PRN PRN Reason: Pain (severe 7-10) Ondansetron HCl (Zofran) 4 mg IVPUSH Q6H PRN PRN Reason: Nausea/Vomiting Oxycodone/Acetaminophen (Percocet 325-5 Mg) 1 tab PO Q4H PRN PRN Reason: Pain (moderate 4-6) Oxycodone/Acetaminophen (Percocet 325-5 Mg) 2 tab PO Q4H PRN PRN Reason: Pain (moderate 4-6) Last Admin: 08/27/16 05:17 Dose: 2 tab Admin: 08/27/16 00:54 Dose: 2 tab Admin: 08/26/16 21:09 Dose: 2 tab Admin: 08/26/16 15:22 Dose: 2 tab Promethazine HCl (Phenergan) 25 mg IM Q6H PRN PRN Reason: Nausea/Vomiting Sodium Chloride (Saline Flush) 10 ml FLUSH ASDIRECTED PRN PRN Reason: Keep Vein Open Sodium Chloride (Saline Flush) 2.5 ml FLUSH ASDIRECTED PRN PRN Reason: Keep Vein Open - Assessment Assessment (Free Text/Narrative):: POD#1 s/p vaginal hysterectomy for menorrhagia and benign endometrial hyperplasia. Patient is stable and afebrile. She is yet to void. CBC and BMP are normal - Plan Plan (Free Text/Narrative):: Patient may be discharged once she voids Discharge instructions reviewed. Bleeding and infection precautions reviewed. Nothing in the vagina for 6 weeks Lifting instructions reviewed. Prescription for Percocet given Follow up in the clinic in 2 weeks
== END 2016-08-27 16:30 | disposition home or self-care (01) ==
LOC: MW.SDS 06:53 → UNDOADMIN 11:47 → MW.OB 11:47 → MW.SDS 08-27 16:30 → UNDODISIN 08-27 16:30
PROVIDERS: ATTEND Obstetrics & Gynecology
PROC: 0UT97ZZ Resection of Uterus, Via Natural or Artificial Opening (ICD-10-PCS; principal; 2016-08-26)
PROC: 0UTC7ZZ Resection of Cervix, Via Natural or Artificial Opening (ICD-10-PCS; 2016-08-26)
PROC: 0UT97ZZ Resection of Uterus, Via Natural or Artificial Opening (ICD-10-PCS; 2016-08-26)
PROC: 0UTC7ZZ Resection of Cervix, Via Natural or Artificial Opening (ICD-10-PCS; 2016-08-26)
PROC: 0TJB8ZZ Inspection of Bladder, Via Natural or Artificial Opening Endoscopic (ICD-10-PCS; 2016-08-26)
DX: N92.0 Excessive and frequent menstruation with regular cycle (principal); D25.2 Subserosal leiomyoma of uterus; D25.1 Intramural leiomyoma of uterus; N80.0 Endometriosis of uterus
CPT/HCPCS: 36415; 58290; 80048; 84703; 85025; 85027; 86850; 86900; 86901; 88307; A9270; J0690; J1100; J1170; J1885; J1940; J2250; J2405; J3010; J7120; 00944; J2704